=== PATIENT | female | born 1935 | race Caucasian/White ===

== ENCOUNTER → 2018-10-05 | Outpatient (REF) ==
[~2018-10-05] MED LIST: ATIVAN 0.50.5 MG/TAB PO; DESYREL 50MG50 MG PO; PEPCID 20MG TAB20 MG PO; PREMARIN 0.60.625 M1 PO; TYLENOL W/COD1 UDTAB PO; ZYRTEC 10MG10 MG PO
== END ==
LOC: ZLAB.WCH 09:12
DX: Z01.89 Encounter for other specified special examinations (principal)